=== PATIENT | female | born 1950 | race Caucasian/White ===

== ENCOUNTER → 2018-04-12 | Outpatient (CLI) | payer OTHER, MEDICARE ==
[~2018-04-12] MED LIST: IOPAMIDOL (ISOVUE-300) 150 ML BTL ONE
== END ==
LOC: FIMAGING 07:42
PROVIDERS: ATTEND Internal Medicine
DX: R31.9 Hematuria, unspecified (principal); N20.0 Calculus of kidney; R93.5 Abnormal findings on diagnostic imaging of other abdominal regions, including retroperitoneum
CPT/HCPCS: 74178; Q9967

== ENCOUNTER → 2018-06-17 | Outpatient (CLI) | payer OTHER, MEDICARE | LOC: BMCIMAGING 13:24 | PROVIDERS: ATTEND Orthopaedic Surgery | DX: Z13.828 Encounter for screening for other musculoskeletal disorder (principal) ==